=== PATIENT | female | born 1995 | race Caucasian/White ===

== ENCOUNTER 2024-06-28 12:59 | Inpatient (IN) ==
[2024-06-28] MEDS ORDERED: OXYTOCIN 30 UNITS/NSS 30 UNITS/500 ML BAG IV PRN (13:33)
[2024-06-28] MEDS ORDERED: LIDOCAINE 1% LOCAL 20 ML VIAL INFIL PRN (13:33)
[2024-06-28] MEDS ORDERED: SUCCINYLCHOLINE CHLORIDE 20 MG/ML 10 ML VIAL IV ONE (13:35)
[2024-06-28] MEDS ORDERED: PROPOFOL IV EMULSION 10 MG/ML 20 ML VIAL IV ONE ×2 (13:35→15:23)
[2024-06-28] MEDS ORDERED: ONDANSETRON INJ 2 MG/ML 2 ML VIAL ONE (13:35)
[2024-06-28] MEDS ORDERED: ROCURONIUM BROMIDE 10 MG/ML 5 ML VIAL IV ONE (13:35)
[2024-06-28] MEDS ORDERED: LIDOCAINE 2% 20 MG/ML 5 ML SYR IV ONE (13:35)
[2024-06-28] MEDS ORDERED: fentaNYL citrate PF 100 MCG/2 ML VIAL ONE ×2 (13:36→14:41)
[2024-06-28] MEDS ORDERED: OXYTOCIN 10 UNITS/ML VIAL ONE ×3 (13:44→15:01)
--- NOTE | 2024-06-28 13:51 | Anesthesiology Consultation ---
Date of Service June 28, 2024 Assessment & Plan Chart Review Chart Review: Acceptable Risk for Surgery and Patient NOT seen in Pre Admission Testing Consults Requested none ASA [id number] Proposed Anesthesia Anesthesia Type: General Risk / Benefits Reviewed With: PT / POA / Parent / Guardian, Accepts Plan and Informed Consent Obtained Additional Notes patient is hypotensive and tachycardic on admission, oxygen saturations 88% on room air. Suspect sepsis from influenza although outpatient testing is not back from yesterday. She is likely too unstable for spinal anesthetic, so will elect for emergent general anesthesia. I have concern for her cardiopulmonary status afterward; will attempt resuscitation in the OR and if necessary she may require transfer to the ICU post operatively for ongoing cardiopulmonary support. History Allergies Allergy/AdvReac Type Severity Reaction Status Date / Time nickel Allergy Mild Rash Verified 06/28/24 13:45 Medications Home Medications Medication Instructions Recorded Confirmed Last Taken [id number] oil 1 PO 12/07/23 06/28/24 06/28/24 08:00 [ Gummy] breast pump #1 ea 05/14/24 06/28/24 Unknown ketoconazole 2 % shampoo 1 applic topical DAILY 3 months 05/15/24 06/28/24 Unknown #720 mL valacyclovir 1 gram tablet 1,000 mg PO BID 10 days #20 tabs 06/27/24 06/28/24 06/28/24 08:00 oseltamivir 75 mg capsule (Tamiflu) 75 mg PO BID 5 days #10 caps 06/28/24 06/28/24 06/28/24 10:30 Past Medical History Medical History Anxiety Insomnia Unspecified lump in axillary tail of the left breast Headache Fatigue Lipoma Seborrheic dermatitis PCOS (polycystic ovarian syndrome) Miscarriage Dysfunctional uterine bleeding Right flank pain UTI (urinary tract infection) Dysfunctional uterine bleeding Exercise / Class Metabolic Activity II 4-5 Yardwork/Stairs/Walk up hill Past Family History Family History Family/Other Alcohol abuse Hypertension Grandfather Lung cancer Cancer Grandmother Cancer Sister Androgen insensitivity syndrome Denies family history of Ovarian cancer Breast cancer Colorectal cancer Past Surgical History Surgical History H/O gastric bypass H/O wisdom tooth extraction Past Anesthesia History No Hx of Anesthesia Complications and No Family Hx of Anesthesia Complications History of PONV No Hx of PONV and No Hx of Motion Sickness Social History Smoking Status: Never smoker Do You Dip or Chew Tobacco: No Hx Alcohol Use: No Hx Substance Use: No Physical Exam Vital Signs Last Vital Signs Pulse 134 H 06/28/24 13:43 BP 98/55 L 06/28/24 13:41 Pulse Ox 100 06/28/24 13:43 ENMT Mouth: no dentition abnormality Thyromental Distance: > or= 3.5 Finger Breadths Mallampati Class: II Neck normal visual inspection Respiratory + tachypneic Auscultation: lungs clear to auscultation bilaterally Cardiovascular Rate/Rhythm: regular rhythm and + tachycardic Psychiatric Orientation: alert
--- NOTE | 2024-06-28 13:51 | History & Physical Report ---
Date of Service June 28, 2024 Assessment & Plan (1) delivery due to maternal disorder: (2) Genital labial ulcer: Plan Radha is a 28yo presenting to the office after SROM around 12pm today 06/28/24 and sores on labia, admitted for . due to risk of suspected HSV infection being transferred to baby in addition to non-reassuring FHR. FHR currently category 3 before , 14:00 Continue valacyclovir 1g BID for total of 10 days as well as Tamiflu 75mg BID for total of 5 days Ordered HSV blood PCR care per orders Admission and Anticipated Discharge Date Admission Date: June 28, 2024 History of Present Illness Chief Complaint: SROM, sores on labia Primary Care Provider: Ramarkishna Dumont DO Radha is a 28yo at 37w4d who presented to the office after SROM around 12pm today 06/28/24 and sores on labia, admitted for emergency . HSV PCR testing was done on 06/27 so results are still pending. Fever recently up to 100.4F, feeling generally unwell and with flulike symptoms for the past 2-3 days. States the sores on her labia started just 2-3 days ago as well ranging in size from punctate to 2mm round, some with yellow/white crusting. Denies history of prior HSV but started on valacyclovir 1g BID for 10 days at appointment yesterday 06/27/24. Otherwise, endorses current has been uneventful Baby moving: yes Contractions: yes Vaginal bleeding/discharge: only upon SROM Significant pain/trauma: denies GBS-, Rh+, T. pallidum negative Allergies Allergy/AdvReac Type Severity Reaction Status Date / Time nickel Allergy Mild Rash Verified 06/28/24 13:45 Home Medications Medication Instructions Recorded Confirmed Type [id number] oil 1 PO 12/07/23 06/28/24 History [ Gummy] breast pump #1 ea 05/14/24 06/28/24 Rx ketoconazole 2 % shampoo 1 applic topical DAILY 3 months 05/15/24 06/28/24 Rx #720 mL valacyclovir 1 gram tablet 1,000 mg PO BID 10 days #20 tabs 06/27/24 06/28/24 Rx oseltamivir 75 mg capsule (Tamiflu) 75 mg PO BID 5 days #10 caps 06/28/24 06/28/24 Rx Patient History Medical History Anxiety Insomnia Unspecified lump in axillary tail of the left breast Headache Fatigue Lipoma Seborrheic dermatitis PCOS (polycystic ovarian syndrome) Miscarriage Dysfunctional uterine bleeding Right flank pain UTI (urinary tract infection) Dysfunctional uterine bleeding Surgical History H/O gastric bypass H/O wisdom tooth extraction Family History Family/Other Alcohol abuse Hypertension Grandfather Lung cancer Cancer Grandmother Cancer Sister Androgen insensitivity syndrome Denies family history of Ovarian cancer Breast cancer Colorectal cancer Social History Smoking Status: Never smoker Second Hand Exposure: No; Do You Dip or Chew Tobacco: No; Hx Alcohol Use: No Hx Substance Use: No Preferred Language: Lao Service Station [employer] Required: No Beliefs That Will Affect Care: None marital status: marital status details: Pete Echevarria (30) [phone] Current Living Situation: Spouse Current Living Situation Comment: Lives with and his parents, 2 dogs, bird, lizards, turtle 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 Physical Activity Frequency: 1-2 Times per Week Seatbelt Use: always Sunscreen Use: Yes Assistive Devices: None Physical Exam Physical Exam: General: A&Ox3, appearing in mild distress CV: mildly tachycardic rate, reg rhythm, +s1/s2, no m/r/g Resp: clear to auscultation b/l, no wheeze/rales/rhonchi GI/Abd: +BS, gravid, nontender to palpation, FHR pads in place Ext: b/l LE slightly erythematous in appearance and feeling tense to palpation but nontender to palpation, Otf's negative b/l Cervical: N/A Neuro: no facial droop, speech intact, sensation grossly intact Psych: euthymic, appropriate speech Genitourinary: OB Exam Monitor Tracing: + external FHT monitor used, + external uterine monitor used, + category III and + variable decelerations; no normal FHT variability (decreased) Results & Data Vital Signs (Past 12 Hours) Vital Signs Pulse BP Pulse Ox 06/28/24 13:48 99 06/28/24 13:48 135 H 06/28/24 13:48 121 H 109/56 L 06/28/24 13:43 134 H 100 06/28/24 13:41 127 H 98/55 L 06/28/24 13:38 104 H 100 06/28/24 13:33 113 H 100 06/28/24 13:28 125 H 101/63 100 06/28/24 13:23 142 H 100 06/28/24 13:22 113 H 89/58 L 06/28/24 13:20 134 H 85/53 L Code Status & VTE Plan VTE Prophylaxis Plan VTE Prophylaxis will be ordered: No Reason for no VTE drug order: Treatment not indicated Supervising Physician Co-Signing Physician Notes Resident Physician Supervision Note: I interviewed and examined the patient. Discussed with Dr. Byrne and agree with findings and plan as documented in the note. Any exceptions or clarifications are listed here: [None] Documented By: Shaista Merritt MD, FACOG Resident Activity Tracking Resident Involvement: Resident Care Provided Care Provided: OB Delivery
[2024-06-28] MEDS: ACETAMINOPHEN 500 MG TAB PO SCH (14:06)
[2024-06-28] MEDS: AZITHROMYCIN 500 MG/255 ML BAG IV ONE (14:07)
[2024-06-28] MEDS: ceFAZolin 2000MG 2,000 MG/15 ML SYR IV SCH (14:09)
[2024-06-28 14:18] LABS: Hemoglobin 11.9 g/dl (12.0-16.0); Mean Corpuscular Hemoglobin 30.1 pg (25.0-34.0); Mean Corpuscular Volume 86.1 fL (80.0-100.0); Mean Platelet Volume 10.8 fL (9.4-12.4); Platelet Count 126 K/uL (130-400); RDW Coefficient of Variation 12.9 % (11.5-14.5); RDW Standard Deviation 40.2 fL (36.4-46.3); Red Blood Count 3.95 M/uL (4.20-5.40); White Blood Count 4.88 K/ul (4.8-10.8)
[2024-06-28] MEDS ORDERED: BUPIVACAINE 0.5 % 5 MG/1 ML PF 10ML VIAL ONE (14:19)
[2024-06-28 14:28] LABS: Albumin Globulin Ratio 1.1 (0.9-2); Albumin Level 3.2 gm/dl (3.4-5.0); BUN Creatinine Ratio 17.4 (10-20); Bilirubin Direct 0.1 mg/dl (0-0.2); Bilirubin,Total 0.5 mg/dl (0.2-1.0); Calcium 8.5 mg/dl (8.6-10.3); Creatinine Clr Calc Pharmacy 99.4 ml/min; Globulin 2.8 gm/dl (2.5-4.0); Potassium 3.8 mmol/L (3.5-5.1)
[2024-06-28 14:33] LABS: Basophils # (auto) 0.02 K/uL (0.00-0.20); Basophils % (auto) 0.4 %; Eosinophils # (auto) 0.04 K/uL (0.00-0.50); Eosinophils % (auto) 0.8 %; Immature Granulocytes % (auto) 4.1 %; Lymphocytes # (auto) 0.58 K/uL (1.20-3.40); Lymphocytes % (auto) 11.9 %; Monocytes # (auto) 0.55 K/uL (0.11-0.59); Monocytes % (auto) 11.3 %; Neutrophils # (auto) 3.49 K/uL (1.40-6.50); Neutrophils % (auto) 71.5 %
[2024-06-28] MEDS ORDERED: SUGAMMADEX SODIUM 200 MG/2 ML VIAL IV ONE (15:00)
[2024-06-28] MEDS ORDERED: LACTATED RINGER'S 1,000 ML IV SCH (15:33)
[2024-06-28] MEDS ORDERED: CALCIUM CARBONATE 500 MG CHEWABLE TAB PO PRN (15:33)
[2024-06-28] MEDS ORDERED: HYDROmorphone INJ 0.5 MG/0.5 ML SYR IV PRN (15:33)
[2024-06-28] MEDS ORDERED: diphenhydrAMINE Capsule 25 MG CAP PO PRN (15:33)
[2024-06-28] MEDS ORDERED: PROMETHAZINE 12.5 MG/50.5 ML BAG IV PRN (15:33)
[2024-06-28] MEDS ORDERED: diphenhydrAMINE 50 MG/ML VIAL IV PRN (15:33)
[2024-06-28] MEDS ORDERED: oxyCODONE HCL IR 5 MG TAB (IMMEDIATE RELEASE) PO PRN (15:33)
[2024-06-28] MEDS ORDERED: HYDROCORTISONE ACETATE 25 MG SUPP PR PRN (15:33)
[2024-06-28] MEDS ORDERED: MAGNESIUM HYDROXIDE SUSP 30 ML UDC PO PRN (15:33)
[2024-06-28] MEDS ORDERED: ONDANSETRON INJ 2 MG/ML 2 ML VIAL IV PRN ×2 (15:33→16:15)
[2024-06-28] MEDS ORDERED: SENNA 8.6 MG TAB PO PRN (15:33)
--- NOTE | 2024-06-28 15:33 | Post Operative Brief Note ---
Immediate Post Op Note Date of Surgery June 28, 2024 Pre & Post Diagnosis Operation Date: 06/28/24 14:15 Pre-Op DX: 37 week IUP with suspected genital HSV with NRFHR and SPROM Post-Op Dx: same plus delivery of viable female IUP I identified the patient and participated in the time-out.: Yes Procedure Operation Date: 06/28/24 14:15 Primary low transverse section Surgeon Shaista Merritt MD, FACOG Practice Director Kristel Felix RN, Rashad Byrne DO Quantitative Blood Loss (QBL) 679 Findings Consistent with Post-Op Diagnosis normal tubes and ovaries, gravid uterus Drains Hughes Catheter Anesthesia Type General Complications none Disposition Accompanied Patient To Recovery: Yes
[2024-06-28] MEDS: KETOROLAC 30 MG/ML VIAL IV SCH (15:56)
[2024-06-28 16:00] LABS: CO2 Cord Arterial Blood 63 mmHg (39.1-73.5); Oxygen Sat Cord Arterial Blood < 60.0 % (<60); PO2 Cord Arterial Blood < 20 mmHg (4.1-31.7); pH Cord Arterial Blood < 7.00 (7.1-7.38)
[2024-06-28] MEDS ORDERED: ATROPINE SULFATE 0.1 MG/ML 10ML SYR IV PRN (16:15)
[2024-06-28] MEDS ORDERED: ePHEDrine sulfate 50 MG/ML AMP IV PRN (16:15)
[2024-06-28] MEDS ORDERED: MEPERIDINE HCL 25 MG/ML CARP/VIAL IV PRN (16:15)
[2024-06-28] MEDS ORDERED: HYDROmorphone INJ 2 MG/ML SYR/VIAL IV PRN (16:15)
[2024-06-28] MEDS ORDERED: PROMETHAZINE HCL 6.25 MG in SODIUM CHLORIDE 0.9% 50 ML IV PRN (16:15)
[2024-06-28] MEDS ORDERED: HYDROmorphone INJ 1 MG/ML SYRINGE IV PRN (16:15)
--- NOTE | 2024-06-28 16:16 | Anesthesiology Progress Note ---
Date of Service June 28, 2024 Anesthesia Post Procedure Vital Signs Vital Signs: Temp Pulse Resp BP Pulse Ox 06/28/24 16:10 96 H 102/56 L 93 06/28/24 16:05 99 H 93 06/28/24 16:00 94 H 82/49 L 91 06/28/24 15:55 101 H 92 06/28/24 15:51 103 H 94 06/28/24 15:50 95 06/28/24 15:50 100 H 06/28/24 15:50 101 H 91/53 L 06/28/24 15:46 109 H 94 06/28/24 15:45 105 H 95 06/28/24 15:40 99 H 96 06/28/24 15:39 99 H 93/54 L 06/28/24 14:08 115 H 100 06/28/24 14:07 102 H 116/75 06/28/24 14:03 123 H 100 06/28/24 14:01 110 H 105/66 06/28/24 13:58 109 H 104/67 100 06/28/24 13:53 103 H 99 06/28/24 13:51 101 H 114/70 06/28/24 13:48 99 06/28/24 13:48 135 H 06/28/24 13:48 121 H 109/56 L 06/28/24 13:44 37.3 C 24 06/28/24 13:43 134 H 100 06/28/24 13:41 127 H 98/55 L 06/28/24 13:38 104 H 100 06/28/24 13:33 113 H 100 06/28/24 13:28 125 H 101/63 100 06/28/24 13:23 142 H 100 06/28/24 13:22 113 H 89/58 L 06/28/24 13:20 134 H 85/53 L Transfer of Care Handoff Completed per policy Notes Mental Status: alert / awake / arousable Patient Amnestic to Procedure: Yes Nausea / Vomiting: adequately controlled Pain: adequately controlled Airway Patency, RR, SpO2: stable & adequate BP & HR: stable & adequate Hydration State: stable & adequate Anesthetic Complications: no major complications apparent
[2024-06-28] MEDS: COUGH DROP (SUGAR FREE) LOZ 24 LOZ/1 BOX BUCCAL ONE (16:22)
--- NOTE | 2024-06-28 17:05 | Operative Report ---
Post Operative Report Pre & Post Diagnosis Operation Date: 06/28/24 14:15 Pre-Op Diagnosis: 1. 37 week IUP. 2. 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 3. Primary C/S. Post-Op Diagnosis: 1. 37 week IUP. 2. 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 Primary C/S 4. Delivery of viable female IUP via C/S on 06/28/2024 at 1437 in L&D OR. 5. Delivery of placenta. 6. Cord Blood Gases collected. 7. Cord blood collected. 8. Genetic Testing Cord Blood collected. I identified the patient and participated in the time-out.: Yes Procedure Operation Date: 06/28/24 14:15 Actual Procedures p Section in LD - Shaista Merritt MD, FACOG Surgeon Shaista Merritt MD, FACOG Owner Kristel Felix RN, Asaf Byrne DO Quantitative Blood Loss (QBL) 679 Findings Consistent with Post-Op Diagnosis Specimens Placenta sent to pathology for exam. [facility] Cord blood sample sent for chromosomal analysis. Drains Hughes catheter to straight drainage with clear urine at the end of the case Anesthesia Type General Complications none Disposition Accompanied Patient To Recovery: Yes Indications Patient is a 28-year-old 1 P0 female EDC of 07/16/2024 who presents at 37-3/7 weeks with spontaneous rupture of thin meconium stained fluid at approximately noon today. Of note, she had developed vulvar lesions 2 days ago along with systemic symptoms of fever chills body aches at the same time. She was seen in the office yesterday where HSV PCR samples were taken of the vulvar lesions. They were noted to be diffuse on that exam the patient denies any prior lesions of this kind in the vaginal area. Upon arrival in labor and delivery, patient was hypotensive with O2 saturation at 88% on room air. heart rate tracing was not reassuring. There is no [id number] variability and there were moderate variables intermittently. Baseline heart rate was 170-180 bpm. Because of vulvar ulcers without definitive diagnosis, persistent tachycardia, & hypotensive nature of the patient with decreased oxygen saturation it was felt prudent to proceed with low transverse section under general endotracheal anesthesia. She and her are in agreement with this plan. Description of Procedure Patient was prepped and draped and Hughes catheter placed prior to inducing anesthesia. After given the okay from the anesthesiologist, a low transverse skin incision was made with a scalpel and carried the fascia with the same scalpel. Fascial incision was then extended with Lopez scissors and the underlying rectus muscle bluntly sharply dissected off of the overlying fascia the rectus muscle were then bluntly divided along the midline and on the underlying peritoneum elevated and entered sharply. The bladder was then taken down off the anterior surface of the uterus and placed behind the bladder blade. The lower uterine segment was entered with scalpel and extended transversely by stretching the incision in a cephalad and caudad direction. It was delivered easily from the vertex presentation with moderate fundal pressure. She had poor respiratory effort and no tone. After the cord was clamped and cut she was handed off to Dr. Cleaning and the nursery crew were in attendance at the [facility]. After portion of the cord was obtained for cord gas, a specimen of blood for further chromosome analysis was taken in a sterile fashion from the remaining cord. The placenta was then expressed intact with a three-vessel cord. The uterus was then exteriorized to cover the clean lap sponge. Uterine cavity was explored and found to be free of any placental tissue or membranes. Uterus was then closed in 2 layers in a running locking imbricating fashion with 0 Monocryl. Bleeding along the bladder flap was controlled with the Bovie. This point hemostasis was noted to be excellent. Small amount of blood was removed from the posterior cul-de-sac. The uterus was then placed back inside the abdominal cavity. After ensuring that the uterine incision continued to have excellent hemostasis, some clot was removed from the anterior cul-de-sac. The gutters were found to be clear of any clots or blood. The rectus muscle were then brought together on the midline with individual stitches of 0 Monocryl. The fascia was closed in a running fashion with 0 Vicryl. After irrigating the subcutaneous layer, the skin edges were reapproximated with a 4-0 Vicryl stitch. Patient tolerated the procedure well and was stable back in labor and delivery for recovery. I attest to the content of the Intraoperative Record and any orders documented therein. Any exceptions are noted below. OB Procedure Charges 97181
[2024-06-28] MEDS: CITRIC ACID/SODIUM CITRATE 15 ML UDC PO SCH (17:11)
[2024-06-28] MEDS: fentaNYL citrate PF 100 MCG/2 ML VIAL IV PRN (17:44)
[2024-06-28] MEDS: SIMETHICONE 80 MG CHEW PO SCH (19:37)
--- NOTE | 2024-06-28 19:53 | Obstetrical Progress Note ---
Date of Service June 28, 2024 Assessment & Plan (1) Flu-like symptoms: Plan: will check Biofire and Jem flu variant because of possible exposure at work. 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 will check Biofire and Jem flu as well now. Review of Systems Review of Systems: All systems reviewed & are unremarkable except as noted in HPI & below Results & Data Vital Signs (Past 12 Hours) Vital Signs Temp Pulse Resp BP Pulse Ox O2 Del Method O2 Flow Rate 06/28/24 19:45 70 99 06/28/24 19:40 74 99 06/28/24 19:35 72 100 06/28/24 19:30 75 98 06/28/24 19:25 74 99 06/28/24 19:20 71 98 06/28/24 19:18 64 88 L 06/28/24 19:15 76 98 06/28/24 19:10 82 99 06/28/24 19:05 74 99 06/28/24 19:00 79 98 06/28/24 18:55 79 98 06/28/24 18:50 83 98 06/28/24 18:45 97.0 F L 19 06/28/24 18:45 84 99 06/28/24 18:40 80 99 06/28/24 18:35 84 98 06/28/24 18:30 86 98 06/28/24 18:25 77 98 06/28/24 18:20 87 101/68 98 06/28/24 18:15 84 98 06/28/24 18:10 79 100/68 98 06/28/24 18:05 80 98 06/28/24 18:01 93 H 99/58 L 06/28/24 18:00 90 97 06/28/24 17:55 79 97 06/28/24 17:50 92 H 97 06/28/24 17:45 77 97 06/28/24 17:40 82 108/67 97 06/28/24 17:35 91 H 98 06/28/24 17:30 97 06/28/24 17:30 81 06/28/24 17:30 84 105/62 06/28/24 17:25 81 97 03/06/25 17:20 97 06/28/24 17:20 84 06/28/24 17:20 82 106/64 06/28/24 17:15 78 96 06/28/24 17:10 82 108/65 96 06/28/24 17:05 84 97 06/28/24 17:00 90 110/59 L 96 06/28/24 16:55 85 97 06/28/24 16:50 97 06/28/24 16:50 85 06/28/24 16:50 89 106/59 L 06/28/24 16:45 91 H 97 06/28/24 16:40 Room Air 06/28/24 16:40 88 113/65 96 06/28/24 16:35 92 H 95 06/28/24 16:30 88 100/57 L 95 06/28/24 16:25 89 96 06/28/24 16:20 97.7 F 18 Room Air 06/28/24 16:20 96 06/28/24 16:20 96 H 06/28/24 16:20 98 H 101/59 L 06/28/24 16:15 89 95 06/28/24 16:10 96 H 102/56 L 93 06/28/24 16:05 99 H 93 06/28/24 16:00 Room Air 06/28/24 16:00 94 H 82/49 L 91 06/28/24 15:55 101 H 92 06/28/24 15:51 103 H 94 06/28/24 15:50 Nasal Cannula 2 06/28/24 15:50 95 06/28/24 15:50 100 H 06/28/24 15:50 101 H 91/53 L 06/28/24 15:46 109 H 94 06/28/24 15:45 105 H 95 06/28/24 15:40 Nasal Cannula 2 06/28/24 15:40 97.7 F 18 06/28/24 15:40 99 H 96 06/28/24 15:39 99 H 93/54 L 06/28/24 14:08 115 H 100 06/28/24 14:07 102 H 116/75 06/28/24 14:03 123 H 100 06/28/24 14:01 110 H 105/66 06/28/24 13:58 109 H 104/67 100 06/28/24 13:53 103 H 99 06/28/24 13:51 101 H 114/70 06/28/24 13:48 99 06/28/24 13:48 135 H 06/28/24 13:48 121 H 109/56 L 06/28/24 13:44 99.1 F 24 06/28/24 13:43 134 H 100 06/28/24 13:41 127 H 98/55 L 06/28/24 13:38 104 H 100 06/28/24 13:33 113 H 100 06/28/24 13:28 125 H 101/63 100 06/28/24 13:23 142 H 100 06/28/24 13:22 113 H 89/58 L 06/28/24 13:20 134 H 85/53 L PG Care Time/CCT Total # of Minutes Spent Total Time Spent with Patient: Total time spent is greater than 50% in coordination of care (as documented) at patient's floor/unit and/or counseling patient: Coding Level of Care Code 11705 SUB INP/OBS CARE 05/19MIN Diagnoses Flu-like symptoms R68.89
[2024-06-28] MEDS: DOCUSATE SODIUM 100 MG CAP PO SCH (20:20)
[2024-06-28] MEDS: valACYclovir HCL 500 MG TABLET PO SCH (20:20)
[2024-06-28] MEDS ORDERED: OSELTAMIVIR PHOSPHATE 75 MG CAP PO SCH (21:00)
[2024-06-28 21:16] LABS: Adenovirus PCR Not Detected (NotDetected); Bordetella parapertussis PCR Not Detected (NotDetected); Bordetella pertussis PCR Not Detected (NotDetected); Chlamydia pneumoniae PCR Not Detected (NotDetected); Coronavirus 229E PCR Not Detected (NotDetected); Coronavirus CoV-2 (COVID19)PCR Not Detected (NotDetected); Coronavirus HKU1 PCR Not Detected (NotDetected); Coronavirus NL63 PCR Not Detected (NotDetected); Coronavirus OC43PCR Not Detected (NotDetected); Human Metapneumovirus PCR Not Detected (NotDetected); Influenza A PCR Not Detected (NotDetected); Influenza B PCR Not Detected (NotDetected); Mycoplasma pneumoniae PCR Not Detected (NotDetected); Parainfluenza Virus 1 PCR Not Detected (NotDetected); Parainfluenza Virus 2 PCR Not Detected (NotDetected); Parainfluenza Virus 3 PCR Not Detected (NotDetected); Parainfluenza Virus 4 PCR Not Detected (NotDetected); Respiratory Syncytial VirusPCR Not Detected (NotDetected); Rhinovirus/Enterovirus PCR Not Detected (NotDetected)
[2024-06-28] MEDS: ACETAMINOPHEN 325 MG TAB PO SCH (22:37)
[2024-06-28] MEDS: OXYTOCIN 20 UNITS/LR 1,002 ML IV SCH (22:45)
--- NOTE | 2024-06-29 06:30 | Obstetrical Progress Note ---
Date of Service June 29, 2024 Assessment & Plan (1) state: (2) Hypothermia: (3) delivery due to maternal disorder: (4) Genital labial ulcer: Plan Radha is a 28yo day 1 s/p emergent due to suspected active HSV genital sores and non-reassuring FHR. Continue care Encourage ambulation and Pain control with ibuprofen & tylenol scheduled , half tab oxycodone as needed for breakthrough pain Hgb: 11.9 -> 13.9 today Resp biofire negative, pending HSV labs Consult internal medicine team for hypothermia despite appearing well and with no other vital sign abnormalities Continue Valacyclovir but Tamiflu was stopped because Biofire was negative orders placed also for varicella and EBV as both could potentially cause a similar picture as HSV will also consult hospitalist for further input and evaluation. Follow up with Dr. Quiñones in 6wks Admission and Anticipated Discharge Date Admission Date: June 28, 2024 Supervising Physician Co-Signing Physician Notes Resident Physician Supervision Note: I was present with Dr. Byrne during the history and exam. I discussed the case with the resident and agree with the findings and plan as documented in the note. Any exceptions or clarifications are listed here: [None] Documented By: Shaista Merritt MD, FACOG Subjective Radha is a 28yo day 1 s/p emergent due to suspected active HSV genital sores and non-reassuring FHR. Feeling: good, some lower abdominal pain Ambulation: yes Void: peeing, no BM Gas: not yet Lochia: decreasing Diet: tolerating Feeding: not currently feeding as baby is in [facility], plans to do breast Sx: feeling warm Physical Exam Physical Exam: Constitutional: WD/WN, vitals as above Psychiatric: A&Ox3, euthymic GI/abd: +BS, abdomen soft, fundus firm and palpable at umbilicus - low-transverse incision scar without s welling and erythema, appears to be healing well Ext: no LE edema, calves nontender to palpation, wiggles toes Results & Data Vital Signs (Past 12 Hours) Vital Signs Temp Pulse Pulse Pulse Resp BP Pulse Ox 06/29/24 05:53 18 96 06/29/24 04:50 62 95 06/29/24 04:00 20 95 06/29/24 03:30 33.6 C L 06/29/24 03:10 33.6 C L 74 16 102/70 99 06/29/24 02:05 18 94 06/29/24 02:05 61 06/29/24 01:15 20 95 06/29/24 01:15 35.8 C L 06/29/24 00:15 34.9 C L 06/29/24 00:10 18 94 06/28/24 23:00 06/28/24 23:00 34.9 C L 74 20 103/71 97 06/28/24 22:15 99 06/28/24 22:15 67 06/28/24 22:10 99 06/28/24 22:10 66 06/28/24 22:05 100 06/28/24 22:05 66 06/28/24 22:00 99 06/28/24 22:00 67 06/28/24 21:55 99 06/28/24 21:55 65 06/28/24 21:50 67 100 06/28/24 21:45 66 99 06/28/24 21:40 63 98 06/28/24 21:35 68 99 06/28/24 21:30 69 98 06/28/24 21:25 63 99 06/28/24 21:20 63 99 06/28/24 21:15 63 98 06/28/24 21:10 62 98 06/28/24 21:05 65 98 06/28/24 21:00 70 99 06/28/24 20:55 70 99 06/28/24 20:50 68 99 06/28/24 20:45 69 99 06/28/24 20:40 66 99 06/28/24 20:39 36.3 C L 06/28/24 20:35 72 99 06/28/24 20:30 70 99 06/28/24 20:25 81 98 06/28/24 20:20 73 98 06/28/24 20:15 74 99 06/28/24 20:10 74 99 06/28/24 20:05 72 99 06/28/24 20:00 68 99 06/28/24 19:55 73 98 06/28/24 19:50 74 99 06/28/24 19:45 70 99 06/28/24 19:40 74 99 06/28/24 19:35 72 100 03/06/25 19:30 75 98 06/28/24 19:25 74 99 06/28/24 19:20 71 98 06/28/24 19:18 64 88 L 06/28/24 19:15 76 98 06/28/24 19:10 82 99 06/28/24 19:05 74 99 06/28/24 19:00 79 98 06/28/24 18:55 79 98 06/28/24 18:50 83 98 06/28/24 18:45 36.1 C L 19 06/28/24 18:45 84 99 06/28/24 18:40 80 99 06/28/24 18:35 84 98 06/28/24 18:30 86 98 O2 Del Method 06/29/24 05:53 06/29/24 04:50 06/29/24 04:00 06/29/24 03:30 06/29/24 03:10 Room Air 06/29/24 02:05 06/29/24 02:05 06/29/24 01:15 06/29/24 01:15 06/29/24 00:15 06/29/24 00:10 06/28/24 23:00 Room Air 06/28/24 23:00 Room Air 06/28/24 22:15 06/28/24 22:15 06/28/24 22:10 06/28/24 22:10 06/28/24 22:05 06/28/24 22:05 06/28/24 22:00 06/28/24 22:00 06/28/24 21:55 06/28/24 21:55 06/28/24 21:50 06/28/24 21:45 06/28/24 21:40 06/28/24 21:35 06/28/24 21:30 06/28/24 21:25 06/28/24 21:20 06/28/24 21:15 06/28/24 21:10 06/28/24 21:05 06/28/24 21:00 06/28/24 20:55 06/28/24 20:50 06/28/24 20:45 06/28/24 20:40 06/28/24 20:39 06/28/24 20:35 06/28/24 20:30 06/28/24 20:25 06/28/24 20:20 06/28/24 20:15 06/28/24 20:10 06/28/24 20:05 06/28/24 20:00 06/28/24 19:55 06/28/24 19:50 06/28/24 19:45 06/28/24 19:40 06/28/24 19:35 06/28/24 19:30 06/28/24 19:25 06/28/24 19:20 06/28/24 19:18 06/28/24 19:15 06/28/24 19:10 06/28/24 19:05 06/28/24 19:00 06/28/24 18:55 06/28/24 18:50 06/28/24 18:45 06/28/24 18:45 06/28/24 18:40 06/28/24 18:35 06/28/24 18:30 Resident Activity Tracking Resident Involvement: Resident Care Provided Care Provided: OB Delivery (2) Hypothermia Encounter type: initial encounter Qualified Code(s): T68.XXXA - Hypothermia, initial encounter
[2024-06-29 07:02] LABS: Basophils # (auto) 0.03 K/uL (0.00-0.20); Basophils % (auto) 0.3 %; Eosinophils # (auto) 0.01 K/uL (0.00-0.50); Eosinophils % (auto) 0.1 %; Hematocrit (blood only) 40.1 % (37.0-47.0); Hemoglobin 13.9 g/dl (12.0-16.0); Immature Granulocytes # (auto) 0.18 K/uL (0.01-0.20); Immature Granulocytes % (auto) 1.7 %; Lymphocytes # (auto) 1.25 K/uL (1.20-3.40); Lymphocytes % (auto) 12.1 %; Mean Corpuscular Hemoglobin 30.5 pg (25.0-34.0); Mean Corpuscular Hgb Conc 34.7 g/dL (32.0-36.0); Mean Corpuscular Volume 88.1 fL (80.0-100.0); Mean Platelet Volume 11.3 fL (9.4-12.4); Monocytes # (auto) 0.64 K/uL (0.11-0.59); Monocytes % (auto) 6.2 %; Neutrophils # (auto) 8.26 K/uL (1.40-6.50); Neutrophils % (auto) 79.6 %; Platelet Count 135 K/uL (130-400); RDW Coefficient of Variation 13.1 % (11.5-14.5); RDW Standard Deviation 42.5 fL (36.4-46.3); Red Blood Count 4.55 M/uL (4.20-5.40); White Blood Count 10.37 K/ul (4.8-10.8)
[2024-06-29 07:43] LABS: Albumin Globulin Ratio 1.1 (0.9-2); Albumin Level 3.3 gm/dl (3.4-5.0); BUN Creatinine Ratio 18.7 (10-20); Bilirubin,Total 0.4 mg/dl (0.2-1.0); Calcium 8.7 mg/dl (8.6-10.3); Globulin 2.9 gm/dl (2.5-4.0); Potassium 4.7 mmol/L (3.5-5.1); Total Protein 6.2 gm/dl (6.0-8.3)
[2024-06-29] MEDS: LACTATED RINGER'S 1,000 ML IV PRN (07:51)
[2024-06-29] MEDS: BUPIVACAINE LIPOSOME 1.3% 133 MG/10 ML VIAL ONE (07:53)
[2024-06-29] MEDS: LACTATED RINGER'S 1,000 ML IV SCH (07:53)
[2024-06-29] MEDS: DIPHTHER/TETAN/PERTUS Vaccine (Tdap, Adol/Adult) 0.5mL IM ONE (08:32)
[2024-06-29] MEDS: FERROUS SULFATE 325 MG TAB PO SCH (08:43)
[2024-06-29] MEDS: PRENATAL VITAMIN 1 TAB PO SCH (08:43)
[2024-06-29] MEDS: SODIUM CHLORIDE 0.9% 1,000 ML IV SCH (11:04)
[2024-06-29 11:14] LABS: EBV Nuclear Antigen IgG Ab Negative; EBV Nuclear Antigen IgG Quant 8.6 U/mL (< 18.0)
[2024-06-29 11:15] LABS: EBV Early Antigen IgG Ab Negative (Negative); EBV Early Antigen IgG Quant 5.7 U/mL (< 9.0)
[2024-06-29 11:16] LABS: EBV IgM Quant 69.8 U/mL (< 36.0)
[2024-06-29 11:17] LABS: EBV IgG Quant 39.7 U/mL (< 18.0)
[2024-06-29 12:20] VITALS: RESP 20
--- NOTE | 2024-06-29 12:41 | Communication Note ---
Date of Service: June 29, 2024 Patient was tested for Mendez Younger Virus this morning after Dr. Quiñones and I discussed her case and added this to the differential. 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 This provides a unifying explanation for her recent illness of 3 days, including fever, lymphadenopathy, sore throat, vulvar ulcerations, elevated LFT's and decreased PLTs, and anomalies in her vital signs with a SIRS-like picture on arrival to hospital yesterday (tachycardia, hypotension, desaturation to 88% on RA) which has since stabilized. She has also tested negative for Influenza, RSV and the remainder of a Biofire respiratory viral panel. Patient was seen in her room with 3 support persons present, along with Temitope Hart RN. Patient was sitting upright, pumping breastmilk, and conversing with supporters. S: She does not currently have complaints other than soreness at her incision and vulvar ulcerations. Patient does not feel chilled or sweaty at this time. She was reportedly utilizing an icepack on incision at times which may have impacted her temperature overnight, but this has since been discontinued and the significance of it is unclear. O: Her vitals have been reviewed including the issue of hypothermia as recorded overnight. Currently she is BP 94/61, P75, R20, T94.6 (at 11:35am), and 100% sat on RA. Gen: NAD, conversant with fluid speech. Resp: No distress nor accessory muscle use. Abd: Post-gravid. Incision not visualized at this time. Ext: SCD's on and operational. No significant edema. Labs reviewed and positive for acute EBV as above. VZV, HSV, TSH still pending. A/P: We discussed the diagnosis of Mendez-Younger Virus at the bedside today. While care for EBV is generally supportive, there is a role for use of antivirals in severe cases and to decrease viral shedding. I therefore encouraged her to continue the course of valacyclovir she was already prescribed, and we discussed comfort measures for the vulvar ulcers (ie Dermoplast) as well as NSAID for fever reduction and pain management. We reviewed that EBV viral infection, like many other viral infections, may be both more severe and more rapidly progressive in patients due to immunosuppression and cardiopulmonary stresses already present in the maternal body. While most adults do carry sufficient immunity against EBV due to prior exposure, and therefore we do not see a lot of cases of acute EBV during , it can occur; up to 5% of -age women do not have effective immunity. In answer to a question from the patient's family, we discussed today that I do not know whether intrauterine or transmission of EBV actually occurred. However, significant maternal illness - such as the degree of acute illness evident in her tachycardia, hypotension and desaturation on admission - can lead to compromise of well being regardless of transmission of an infectious agent to the baby. We discussed the value of providing breast milk, especially colostrum, to the infant to provide maternal antibodies against this and other viruses. We also discussed the expected course of maternal illness. I anticipate that Bibiana will see normalization of her labs over the coming weeks, and this can be followed on an outpatient basis. She is eager to leave to visit her infant at the NICU, and we discussed that once she reaches 24hr we can arrange for her to leave and get further f/u outpatient.
[2024-06-29] MEDS: BENZOCAINE 20% SPRY 85 APPLN/85 GM CAN EXT PRN (14:14)
[2024-06-29] MEDS: IBUPROFEN 600 MG TAB PO SCH (15:50)
[2024-06-29] MEDS ORDERED: KETOROLAC 30 MG/ML VIAL IV PRN (16:00)
--- NOTE | 2024-06-29 16:32 | Communication Note ---
Date of Service: June 29, 2024 I have discussed Bibiana's diagnosis of EBV with the [place] [facility] (a PA involved in kim Echevarria's care was the person designated to speak with me at their facility). 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 They asked for updated Syphilis and HIV testing, and we discussed that Syphilis is negative on admit per T. Pallidum testing and an HIV repeat can be drawn before patient leaves [facility] today. Bibiana is planning a stay at [facility] and eager to leave [facility] to get to her infant. A diagnosis of EBV is likely the primary and solitary illness that led to her events this admission, and can reasonably be expected to improve steadily from here onwards, but surveillance will continue to be important as she convalesces. Vital signs have shown a stable normal pulse, a stable low- normal BP which is likely her baseline, and her temp continues to be below normal but is rising over time. The patient continues to deny any symptoms of subjective fever or chills. Her AST is slightly above normal but has not reached double-normal, and this is likely r/t EBV infection so can be anticipated to resolve as the viral illness does. Rather than continue to hold her at [facility], we will plan for outpatient lab follow up. These are to be drawn no later than Tuesday. She is aware to report any worsening symptoms promptly. We will provide a percocet script for her.
[2024-06-29 17:05] VITALS: BP 100/69; TEMP 94.5; O2SAT 99
[2024-06-29 17:21] VITALS: PULSE 75
[2024-06-29] MEDS ORDERED: bisacodyL 5 MG TABEC PO SCH (20:00)
[2024-06-30] MEDS ORDERED: bisacodyL 10 MG SUPP PR PRN (15:14)
[2024-06-30] MEDS ORDERED: IBUPROFEN 600 MG TAB PO PRN (16:00)
[2024-06-30] MEDS ORDERED: ACETAMINOPHEN 325 MG TAB PO PRN (22:00)
[2024-07-02 04:04] LABS: HSV Type 1 DNA Not Detected (Not Detected); HSV Type 1&2 DNA Source Whole Blood; HSV Type 2 DNA Not Detected (Not Detected)
--- NOTE | 2024-07-02 12:52 | Discharge Summary ---
Date of Service July 02, 2024 Admission HPI Per Admitting Provider Radha is a 28yo at 37w4d who presented to the office after SROM around 12pm today 06/28/24 and sores on labia, admitted for emergency . HSV PCR testing was done on 06/27 so results are still pending. Fever recently up to 100.4F, feeling generally unwell and with flulike symptoms for the past 2-3 days. States the sores on her labia started just 2-3 days ago as well ranging in size from punctate to 2mm round, some with yellow/white crusting. Denies history of prior HSV but started on valacyclovir 1g BID for 10 days at appointment yesterday 06/27/24. Otherwise, endorses current has been uneventful Baby moving: yes Contractions: yes Vaginal bleeding/discharge: only upon SROM Significant pain/trauma: denies GBS-, Rh+, T. pallidum negative Admission Exam (Per Admitting) Genitourinary OB Exam Monitor Tracing: + external FHT monitor used, + external uterine monitor used, + category III and + variable decelerations; no normal FHT variability (decreased) Discharge Data Procedures Performed Operation Date: 06/28/24 14:15 Actual Procedures p Section in - Shaista Merritt MD, FACOG Discharge Plan Discharge Items Patient Disposition: Home - Self-Care Reason For Visit: ROM Discharge Diagnosis: Mendez-Younger Virus, s/p Delivery Activity: Per Instructions section Non-emergency contact: [employer] Cutter Call non-emergency contact if: your symptoms worsen, your pain is not controlled and your rectal temperature is above 100.4 Follow-up/Referrals: Ramakrishna Dumont, [Primary Care Provider] - Diet: Regular Addtl Attending Provider Instructions: ACTIVITY RECOMMENDATIONS: * Gradual return to full activity over the next 2-3 weeks. * No lifting - nothing heavier than baby over the next 2-3 weeks. * Do not engage in vigorous exercise, sexual activity or sports until cleared by your physician. * Do not drive or operate any motorized equipment until cleared by your physician. * You may shower/bathe daily. MEDICATIONS: For discomfort or pain, you may use Acetaminophen (Tylenol), Ibuprofen (Advil), or Naproxen (Aleve) following the package directions. For constipation you may use Colace following the package directions. BREAST CARE: If you are not breast feeding: * Wear a supportive bra 24 hours a day for one to two weeks. * Avoid stimulating your breasts and nipples as much as possible during the first few weeks after delivery. * When taking a shower, have the warm water hit your back, not breasts. * When your breasts feel full, apply ice packs. Usually three to four times a day helps ease the discomfort. * Take a mild pain medication (Tylenol / Motrin) when you are uncomfortable. If breast feeding: * Use breast milk to lubricate nipples. Lansinoh cream may be used for sore nipples. You do not need to remove cream prior to breast feeding. If using a different brand of cream, check the label for directions regarding removal of cream prior to nursing. * Wear a supportive bra. * If having problems with breasts or breast feeding, call a bath design sales consultant or your health care provider. SPECIAL CARE INSTRUCTIONS: When you are discharged from the hospital, it is important for you to follow the instructions listed below: * During the first week at home, you should be able to care for yourself and your baby. In addition, the usual light household activities are encouraged. * Limit your activities to the way you feel. Do not try to clean the house or move furniture. Be sensible. * If you actively engage in sports and have done so up until the time of your delivery, you may resume these activities as soon as you feel able. This may take up to one month or even longer. Use good judgment. * Continue to take your vitamins for at least six weeks after the of your baby. * Your diet need not be limited unless you were on a special diet before your delivery. Breast-feeding mothers need around 2500 calories per day and at l east 64-80 ounces of fluid per day (8 to 10 glasses). * You should eat foods from the four major food groups. Crash diets or fad diets are to be avoided. Eating lean meats, fresh fruits and vegetables, low-fat dairy products, high fiber foods and a regular exercise program, will help you get back to your pre- weight without putting your health at risk. * Constipation is sometimes a problem after delivery. Take a mild laxative as needed. If breast feeding, Milk of Magnesia is acceptable to use. You may use a suppository or Fleets enema. * A daily shower or tub bath is suggested. Wash incision daily with warm soapy water and pat dry. It doesn't need to be covered unless drainage is present. * A bloody vaginal discharge will usually continue until around four weeks . A small amount of bleeding may continue for as long as six weeks. Vaginal discharge changes from the bright red bleeding after delivery to pink then brownish and finally yellowish-pink before becoming white and disappearing. * Bleeding may increase with activity. Your first period may come in 4-8 weeks. If you are breast feeding, your period may be delayed even longer. * [place] (sex) can begin whenever both you and your partner feel comfortable and do not have any form of genital infection. It is recommended that you wait at least six weeks for internal and external healing to occur. If you have questions, please talk to your health care practitioner. A condom should be used to prevent infection and . * Foreplay, gentle intercourse and lubrication is very important the first several times to prevent pain. A water-based lubricant such as K-Y jelly or Astroglide may be used. * If you have RH negative blood and your baby is RH positive, you will receive RHOGAM by injection prior to discharge. The nurse will give you a card to keep with you that has the date and place that you received RHOGAM after delivery. * During your care, you had a Rubella screen done to check for the presence of rubella antibodies in your blood. If your test was negative, you will receive a Rubella vaccine prior to discharge. This vaccine may cause a fever, soreness at the injection site and flu-like symptoms. If these symptoms persist, notify your health care practitioner. is not advised for one month after a Rubella vaccine. * Verbalizes understanding of car seat law as reviewed with patient nursing. * Car Seat hand-out given and reviewed with patient by nursing. * Shaken baby information reviewed with patient by nursing. Call you doctor if: * Heavy bleeding (saturating several pads an hour) or passing clots the size of your fist. * A fever >101 degrees F (38.3 degrees C) on two occasions four hours apart and/or chills. * Unusual pain in the pelvic or vaginal areas. * Call the doctor for any increased redness, drainage or swelling around the incision and any pain unrelieved by prescribed pain medication. * "Baby Blues" lasting longer than two weeks. If you have any questions or concerns, call your health care practitioner at . FOLLOW UP VISIT: * Please call the office at to schedule a 6 week examination. It is important you keep this appointment. It is important for you to make arrangements for either yearly or twice yearly check-ups thereafter. Pending Studies at Discharge: No Stand-Alone Forms: [facility], Smoking Cessation Medications and DC Order Prescriptions: New oxycodone-acetaminophen [Percocet] 5-325 mg tablet 1 tab PO Q6H PRN (Reason: pain) Qty: 20 0RF Continued ketoconazole 2 % shampoo 1 applic topical DAILY 90 Days Qty: 720 3RF valacyclovir 1 gram tablet 1,000 mg PO BID 10 Days Qty: 20 0RF Rx Instructions: Take one tablet every 12 hours x 10 days. (DME) breast pump Device See Rx Instructions .ROUTE .MEDSUPPLY Qty: 1 0RF Rx Instructions: As directed [id number] [ Gummy] 1 PO Discontinued oseltamivir [Tamiflu] 75 mg capsule 75 mg PO BID 5 Days Qty: 10 0RF Discharge Orders: Discharge Order (Routine); Ordered 06/29/24 Ordered By: Kristel Tolbert/Other Patient Handouts: Understanding Blues, Depression, DVT in , After Delivery Concerns, Section (), Preventing Deep Vein Thrombosis Admission Data Admit Date/Time: 06/28/24 13:33 Attending Provider: Shaista Merritt Admit Provider: Shaista Merritt Primary Care Provider: Ramakrishna Dumont Other Interventions: Discharge Summary Assessment (RN) Last Done: 06/29/24 17:20 Coding Level of Care Code 09691 IN/OBS DISCH 30 MIN/LESS
[2024-07-04 23:27] LABS: Varicella Zos Vir IgG Antibody 1.92 S/CO
== END 2024-06-29 18:33 | disposition home or self-care (01) | DRG 788 ==
LOC: OPB 12:59 → 4S1 13:00 → 4E2 22:50